=== PATIENT | female | born 1960 | race American Indian/Alaskan Native ===

== ENCOUNTER 2018-12-31 11:57 | Emergency (ER) | payer OTHER ==
[2018-12-31 12:06] VITALS: BP 134/89
--- NOTE | 2018-12-31 12:08 | Emergency Department Report ---
ED ENT HPI - General Chief complaint: Earache Stated complaint: EAR CLOGGED Time Seen by Provider: 12/31/18 12:02 Source: patient Mode of arrival: Ambulatory Limitations: No Limitations - History of Present Illness Initial comments: 58 y/o female comes in for 3 day history of right hear decrease hearing and pain 09/11. She has history of vertigo. PMH DM, HTN . MD complaint: ear pain Onset/Timin -: days(s) Location: R ear Severity: mild Severity scale (0 -10): 2 Quality: aching Consistency: intermittent Improves with: none Worsens with: none Associated Symptoms: hearing loss - Related Data Previous Rx's Medication Instructions Recorded Last Taken Type Ibuprofen [Motrin 600 MG tab] 600 mg PO Q8H PRN #15 tablet 12/31/18 Unknown Rx Allergies Allergy/AdvReac Type Severity Reaction Status Date / Time tomato Allergy Itching Verified 12/31/18 11:58 ED Dental HPI - General Chief complaint: Earache Stated complaint: EAR CLOGGED Time Seen by Provider: 12/31/18 12:02 Source: patient Mode of arrival: Ambulatory Limitations: No Limitations - Related Data Previous Rx's Medication Instructions Recorded Last Taken Type Ibuprofen [Motrin 600 MG tab] 600 mg PO Q8H PRN #15 tablet 12/31/18 Unknown Rx Allergies Allergy/AdvReac Type Severity Reaction Status Date / Time tomato Allergy Itching Verified 12/31/18 11:58 ED Review of Systems ROS: Stated complaint: EAR CLOGGED Other details as noted in HPI Comment: All other systems reviewed and negative ED Past Medical Hx - Past Medical History Hx Hypertension: Yes Hx Diabetes: Yes Additional medical history: vertigo - Surgical History Additional Surgical History: tubal ligation - Medications Home Medications: Home Medications Medication Instructions Recorded Confirmed Last Taken Type Ibuprofen [Motrin 600 MG tab] 600 mg PO Q8H PRN #15 tablet 12/31/18 Unknown Rx ED Physical Exam - General Limitations: No Limitations General appearance: alert, in no apparent distress - Head Head exam: Present: atraumatic, normocephalic - Eye Eye exam: Present: normal appearance - ENT ENT exam: Present: mucous membranes moist, TM's normal bilaterally - Neck Neck exam: Present: normal inspection, full ROM - Neurological Exam Neurological exam: Present: alert, oriented X3, normal gait - Psychiatric Psychiatric exam: Present: normal affect, normal mood - Skin Skin exam: Present: warm, dry, intact, normal color. Absent: rash ED Medical Decision Making - Medical Decision Making 58 y/o female comes in for right ear discomfort and decreased hearing. Normal ear exam. Recommend tylenol and referral to ENT. Critical care attestation.: If time is entered above; I have spent that time in minutes in the direct care of this critically ill patient, excluding procedure time. ED Disposition Clinical Impression: Decreased hearing of right ear Acute ear pain Qualifiers: Laterality: right Qualified Code(s): H92.01 - Otalgia, right ear Disposition: DC- TO HOME OR SELFCARE Is pt being admited?: No Does the pt Need Aspirin: No Condition: Stable Instructions: Earache (ED) Additional Instructions: Take pain meds as needed. Follow up with a Ear Nose and Throat. Prescriptions: Ibuprofen [Motrin 600 MG tab] 600 mg PO Q8H PRN #15 tablet PRN Reason: Pain Referrals: JACQUELINE BENAVIDEZ MD [Staff Physician] - 3-5 Days Forms: Work/School Release Form(ED)
== END 2018-12-31 12:10 | disposition home or self-care (01) ==
LOC: ED 11:57
DX: H92.01 Otalgia, right ear (principal); I10 Essential (primary) hypertension; E11.9 Type 2 diabetes mellitus without complications; Z98.51 Tubal ligation status; Z91.018 Allergy to other foods
CPT/HCPCS: 99282

== ENCOUNTER 2019-01-05 12:50 | Emergency (ER) | payer OTHER ==
[2019-01-05] MEDS ORDERED: BENADRYL PO ONE (12:55)
[2019-01-05] MEDS ORDERED: PEPCID PO ONE (12:55)
[2019-01-05] MEDS ORDERED: DEPO-Medrol IM ONE (12:55)
--- NOTE | 2019-01-05 12:55 | Emergency Department Report ---
ED Allergic Reaction HPI - General Chief complaint: Allergic Reaction Stated complaint: FACE SWELLING FROM HAIR DYE Time Seen by Provider: 01/05/19 12:53 Source: patient Mode of arrival: Ambulatory Limitations: No Limitations - History of Present Illness Initial Comments: 3 DAYS AGO COLORED HER HAIR. SHE STARTED TO ITCH AND TODAY EYES SWELLED. SHE HAS HAD SIMILAR REACTION IN PAST BENADRYL AT HOME NOT HELPING NO SOB NO CP VSS NAD ABC INTACT NO WHEEZING MD Complaint: allergic reaction -: Gradual, days(s) Exposure: other Symptoms: facial swelling Severity: mild Treatment Prior to Arrival: benadryl Previous Allergy History: none - Related Data Previous Rx's Medication Instructions Recorded Last Taken Type Cetirizine HCl [ZyrTEC] 10 mg PO DAILY #30 capsule 01/05/19 Unknown Rx diphenhydrAMINE [Benadryl CAP] 25 mg PO Q8HR PRN #20 capsule 01/05/19 Unknown Rx predniSONE [Deltasone] 20 mg PO DAILY #5 tablet 01/05/19 Unknown Rx Allergies Allergy/AdvReac Type Severity Reaction Status Date / Time tomato Allergy Itching Verified 01/05/19 12:50 ED Review of Systems ROS: Stated complaint: FACE SWELLING FROM HAIR DYE Other details as noted in HPI Comment: All other systems reviewed and negative ED Past Medical Hx - Past Medical History Hx Hypertension: Yes Hx Diabetes: Yes Additional medical history: vertigo - Surgical History Past Surgical History?: Yes Additional Surgical History: tubal ligation - Family History Family history: no significant - Social History Smoking Status: Current Every Day Smoker Substance Use Type: Alcohol - Medications Home Medications: Home Medications Medication Instructions Recorded Confirmed Last Taken Type Cetirizine HCl [ZyrTEC] 10 mg PO DAILY #30 capsule 01/05/19 Unknown Rx diphenhydrAMINE [Benadryl CAP] 25 mg PO Q8HR PRN #20 capsule 01/05/19 Unknown Rx predniSONE [Deltasone] 20 mg PO DAILY #5 tablet 01/05/19 Unknown Rx ED Physical Exam - General Limitations: No Limitations General appearance: alert - Head Head exam: Present: atraumatic, normocephalic - Eye Eye exam: Present: normal appearance, PERRL - ENT ENT exam: Present: mucous membranes moist - Neck Neck exam: Present: normal inspection - Respiratory Respiratory exam: Present: normal lung sounds bilaterally - Cardiovascular Cardiovascular Exam: Present: regular rate - GI/Abdominal GI/Abdominal exam: Present: soft - Rectal Rectal exam: Present: deferred - Extremities Exam Extremities exam: Present: normal inspection, full ROM - Back Exam Back exam: Present: normal inspection, full ROM - Neurological Exam Neurological exam: Present: alert, oriented X3, normal gait - Psychiatric Psychiatric exam: Present: normal affect, normal mood - Skin Skin exam: Present: warm, dry, intact ED Course Vital Signs 01/05/19 12:54 Temperature 98.1 F Pulse Rate 100 H Respiratory 16 Rate Blood Pressure 160/88 [Left] O2 Sat by Pulse 98 Oximetry ED Medical Decision Making - Medical Decision Making MEDICATED WITH DEPOMEDROL, BENADRYL AND PEPCID DC HOME WITH RX AND PCP FOLLOW UP AT [facility] ABC INTACT NO SOB NO WHEEZING NO RASH HAS HAD BEFORE - DUE TO HAIR DYE Vital Signs 01/05/19 12:54 Temperature 98.1 F Pulse Rate 100 H Respiratory 16 Rate Blood Pressure 160/88 [Left] O2 Sat by Pulse 98 Oximetry Critical care attestation.: If time is entered above; I have spent that time in minutes in the direct care of this critically ill patient, excluding procedure time. ED Disposition Clinical Impression: Allergic reaction Disposition: DC-01 TO HOME OR SELFCARE Is pt being admited?: No Does the pt Need Aspirin: No Condition: Stable Instructions: Allergies (ED) Prescriptions: diphenhydrAMINE [Benadryl CAP] 25 mg PO Q8HR PRN #20 capsule PRN Reason: Itching predniSONE [Deltasone] 20 mg PO DAILY #5 tablet Cetirizine HCl [ZyrTEC] 10 mg PO DAILY #30 capsule Referrals: [facility] [Outside] - 3-5 Days Time of Disposition: 12:54
[2019-01-05 13:09] VITALS: BP 160/88
== END 2019-01-05 13:47 | disposition home or self-care (01) ==
LOC: ED 12:50
DX: T78.40XA Allergy, unspecified, initial encounter (principal); I10 Essential (primary) hypertension; E11.9 Type 2 diabetes mellitus without complications; F17.200 Nicotine dependence, unspecified, uncomplicated; Z98.51 Tubal ligation status; Z91.018 Allergy to other foods; X58.XXXA Exposure to other specified factors, initial encounter
CPT/HCPCS: 96372; 99282; J1040

== ENCOUNTER 2021-06-26 09:41 | Emergency (ER) | payer SELFPAY ==
--- NOTE | 2021-06-26 10:32 | Event Note ---
ED Screening Note Date of service: 06/26/21 Time: 10:31 ED Screening Note: 61-year-old female with a past medical history of hypertension, diabetes and hyperlipidemia tobacco use presents to the ER today complaint of feeling dizzy. Patient states that she has been having these symptoms intermittently since last week Wednesday. She describes it as herself spinning, but also feeling drunk. She states that her symptoms got worse today. She states that yesterday she felt like she was about to pass out, but not today. She states that this morning she also had "a slight pain in her left arm" but no chest pain or shortness of breath. She denies any nausea or vomiting. She denies any lower extremity swelling or calf pain. This initial assessment/diagnostic orders/clinical plan/treatment(s) is/are subject to change based on patients health status, clinical progression and re-assessment by fellow clinical providers in the ED. Further treatment and workup at subsequent clinical providers discretion. Patient/guardian urged not to elope from the ED as their condition may be serious if not clinically assessed and managed. Initial orders include: Labs including EKG, chest x-ray and head CT
--- NOTE | 2021-06-26 11:03 | Cat Scan Report ---
CT head/brain wo con INDICATION: Pt has a history of vertigo. dizzy. TECHNIQUE: All CT scans at this location are performed using CT dose reduction for ALARA by means of automated e xposure control. COMPARISON: None available. FINDINGS: There is no evidence of hemorrhage, hydrocephalus, brain edema, or mass effect/mass lesion. There is overall normal brain formation and brain volume for the patient's age. Ventricular and cisternal/sulc al size is normal for age. The included paranasal sinuses and mastoid air cells are clear. The orbits appear unremarkable. IMPRESSION: 1. No acute intracranial abnormality. Signer Name: Cory Lofton MD Signed: 06/26/2021 10:58 AM Workstation Name: [id number]
[2021-06-26] MEDS ORDERED: MECLIZINE 25 MG TAB PO ONE (11:23)
[2021-06-26 11:30] LABS: Basophils # (Auto) 0.1 K/mm3 (0.0-0.1); Basophils % (Auto) 1.4 % (0.0-1.8); Eosinophils # (Auto) 0.1 K/mm3 (0.0-0.4); Eosinophils % (Auto) 2.6 % (0.0-4.3); Hematocrit 37.6 % (30.3-42.9); Hemoglobin 11.7 gm/dl (10.1-14.3); Lymphocytes # (Auto) 2.1 K/mm3 (1.2-5.4); Lymphocytes % (Auto) 38.1 % (13.4-35.0); Mean Corpuscular HGB Conc 31 % (30-34); Mean Corpuscular Volume 70 fl (79-97); Monocytes # (Auto) 0.4 K/mm3 (0.0-0.8); Monocytes % (Auto) 7.6 % (0.0-7.3); Platelet Count 288 K/mm3 (140-440); Red Blood Count 5.36 M/mm3 (3.65-5.03)
--- NOTE | 2021-06-26 11:40 | Emergency Department Report ---
HPI - General Chief Complaint: Dizziness Time Seen by Provider: 06/26/21 11:22 - HPI HPI: MSE 5 The patient is a 61-year-old female present with a chief complaint of dizziness. Patient states her symptoms began approximately 1 week ago after standing up she noticed dizziness feelings of the room spinning. Patient states she has been diagnosed with vertigo in the past approximately 10 years ago. Patient states she has dizziness with any change in position. The patient states she has been anemic in the past and thought maybe she needed to take iron tablets so she began taking iron supplementation but her symptoms have not improved. Patient denies nausea/vomiting, shortness of breath, chest pain, fever or cough. Patient states she has been vaccinated against Covid ED Past Medical Hx - Past Medical History Hx Hypertension: Yes Hx Diabetes: Yes Additional medical history: vertigo - Surgical History Additional Surgical History: tubal ligation - Family History Family history: no significant - Social History Smoking Status: Current Every Day Smoker (1/2 pack/day) Substance Use Type: None (Denies illicit drug) - Medications Home Medications: Home Medications Medication Instructions Recorded Confirmed Last Taken Type Cetirizine HCl [ZyrTEC] 10 mg PO DAILY #30 capsule 01/05/19 Unknown Rx diphenhydrAMINE [Benadryl CAP] 25 mg PO Q8HR PRN #20 capsule 01/05/19 Unknown Rx predniSONE [Deltasone] 20 mg PO DAILY #5 tablet 01/05/19 Unknown Rx Meclizine [Antivert] 25 mg PO TID PRN #20 tablet 06/26/21 Unknown Rx ED Review of Systems ROS: Stated complaint: I KEEP FEELING OUT LIKE I'M GOING TO PAST OUT Other details as noted in HPI Constitutional: denies: fever Eyes: denies: eye pain ENT: denies: throat pain Respiratory: denies: shortness of breath Cardiovascular: denies: chest pain Endocrine: no symptoms reported Gastrointestinal: denies: nausea, vomiting Genitourinary: denies: dysuria Musculoskeletal: denies: back pain Neurological: vertigo. denies: headache Physical Exam - Physical Exam Vital Signs: Vital Signs 06/26/21 09:45 Temperature 98.5 F Pulse Rate 88 Respiratory 18 Rate Blood Pressure 113/66 [Right] O2 Sat by Pulse 100 Oximetry Vital Signs 12/23/21 12/23/21 12/23/21 09:45 13:23 16:45 Temperature 98.5 F Pulse Rate 88 Pulse Rate [ 82 82 Lying] Pulse Rate [ 83 81 Sitting] Pulse Rate [ 97 H 91 H Standing] Respiratory 18 Rate Blood Pressure 87/51 100/51 [Lying] Blood Pressure 113/66 [Right] Blood Pressure 97/59 114/56 [Sitting] Blood Pressure 98/63 105/56 [Standing] O2 Sat by Pulse 100 Oximetry Physical Exam: GENERAL: The patient is well-developed well-nourished female lying on stretcher not appearing to be in acute. [] HEENT: Normocephalic. Atraumatic. Extraocular motions are intact. Patient has moist mucous membranes. No nystagmus noted NECK: Supple. No meningitic signs are noted. Trachea midline CHEST/LUNGS: Clear to auscultation. There is no respiratory distress noted. HEART/CARDIOVASCULAR: Regular. There is no tachycardia. There is no gallop rub or murmur. ABDOMEN: Abdomen is soft, nontender. Patient has normal bowel sounds. There is no abdominal distention. SKIN: There is no rash. There is no edema. There is no diaphoresis. NEURO: The patient is awake, alert, and oriented. The patient is cooperative. The patient has no focal neurologic deficits. The patient has normal speech and gait. Cranial nerves II through XII grossly intact. No dysmetria noted with finger-nose bilaterally. GCS 15. NIHSS= 0 MUSCULOSKELETAL: There is no evidence of acute injury. ED Course Vital Signs 06/26/21 09:45 Temperature 98.5 F Pulse Rate 88 Respiratory 18 Rate Blood Pressure 113/66 [Right] O2 Sat by Pulse 100 Oximetry ED Medical Decision Making - Lab Data Result diagrams: 06/26/21 11:10 06/26/21 11:10 Laboratory Tests 06/26/21 06/26/21 06/26/21 11:10 11:10 Unknown WBC 5.5 RBC 5.36 H Hgb 11.7 Hct 37.6 MCV 70 L MCH 22 L MCHC 31 RDW 15.0 Plt Count 288 Lymph % (Auto) 38.1 H [place] % (Auto) 7.6 H Eos % (Auto) 2.6 Baso % (Auto) 1.4 Lymph # (Auto) 2.1 [place] # (Auto) 0.4 Eos # (Auto) 0.1 Baso # (Auto) 0.1 Seg Neutrophils % 50.3 Seg Neutrophils # 2.8 Sodium 137 Potassium 4.1 Chloride 100.6 Carbon Dioxide 23 Anion Gap 18 BUN 21 H Creatinine 0.8 Estimated GFR > 60 BUN/Creatinine Ratio 26 Glucose 179 H Calcium 9.3 Magnesium 2.10 Total Bilirubin 0.20 AST 13 ALT 15 Alkaline Phosphatase 79 Troponin T < 0.010 Total Protein 7.1 Albumin 4.4 Albumin/Globulin Ratio 1.6 Urine Bilirubin Neg U Epithel Cells (Auto) 11.0 - EKG Data -: EKG Interpreted by [facility] EKG shows normal: sinus rhythm Rate: normal - EKG Data When compared to previous EKG there are: previous EKG unavailable Interpretation: other (Normal sinus rhythm at 84 bpm. QTc 433. QRS 97. Flattened T waves in leads aVL) - Radiology Data Radiology results: report reviewed (CT head), image reviewed (CT head) [facility] [address] [place] [address] Cat Scan Report Signed Patient: KEITH LANTIGUA MR#: [id number] : 1960 Acct:[id number] Age/Sex: 61 / F ADM Date: 06/26/21 Loc: ED Attending Dr: Ordering Physician: EDMOND ANDERSON Date of Service: 06/26/21 Procedure(s): CT head/brain wo con Accession Number(s): [id number] cc: EDMOND ANDERSON CT head/b rain wo con INDICATION: Pt has a history of vertigo. dizzy. TECHNIQUE: All CT scans at this location are performed using CT dose reduction for ALARA by means of automated exposure control. COMPARISON: None available. FINDINGS: There is no evidence of hemorrhage, hydrocephalus, brain edema, or mass effect/mass lesion. There is overall normal brain formation and brain volume for the patient's age. Ventricular and cisternal/sulcal size is normal for age. The included paranasal sinuses and mastoid air cells are clear. The orbits appear unremarkable. IMPRESSION: 1. No acute intracranial abnormality. Signer Name: Cory Lofton MD Signed: 06/26/2021 10:58 AM Workstation Name: [id number] Transcribed By: SON Dictated By: Cory Lofton MD Electronically Authenticated By: Cory Lofton MD Signed Date/Time: 06/26/211057 DD/ 56 TD/TT: Print Cancel - Differential Diagnosis Vertigo, ICH, intracranial mass, symptomatic anemia, dehydration Critical care attestation.: If time is entered above; I have spent that time in minutes in the direct care of this critically ill patient, excluding procedure time. ED Disposition Clinical Impression: Vertigo, Dehydration Disposition: HOME / SELF CARE / HOMELESS Is pt being admited?: No Does the pt Need Aspirin: No Condition: Stable Instructions: Dehydration, Adult, [id number], Dizziness, [id number] Additional Instructions: Return to the emergency department should you develop worsening symptoms, inability to tolerate food or liquids, high fever or any other concerns Prescriptions: Meclizine [Antivert] 25 mg PO TID PRN #20 tablet PRN Reason: Vertigo Referrals: PRIMARY CAREMD [Primary Care Provider] - 3-5 Days CHELSIE SMALLS MD [Staff Physician] - 3-5 Days (Dr. Smalls is a neurologist. Please follow-up with him for further evaluation) Time of Disposition: 17:01
[2021-06-26 11:50] LABS: Alanine Aminotransferase 15 units/L (7-56); Albumin 4.4 g/dL (3.9-5); BUN/Creatinine Ratio 26; Blood Urea Nitrogen 21 mg/dL (7-17); Calcium 9.3 mg/dL (8.4-10.2); Hemolysis Index 6
[2021-06-26] MEDS ORDERED: SODIUM CHLORIDE 0.9% 1000 ML 1,000 ML IV ONE (13:31)
--- NOTE | 2021-06-26 13:33 | Electrocardiograph Report ---
[facility] Test Date: 2021-06-26 Test Time: 10:18:42 Pat Name: KEITH LANTIGUA Department: Room: Gender: [employer] Representative: 01 : 1960 Requested By: EDMOND ANDERSON Order Number: [id number] Reading MD: Jessica Rodriguez Measurements Intervals Oden Rate: 84 P: 77 WI: 204 QRS: 39 QRSD: 97 T: 61 QT: 365 QTc: 433 Interpretive Statements Sinus rhythm Anterior infarct, old No previous ECG available for comparison Electronically Signed On 06-26-2021 13:33:29 EST by Jessica Rodriguez
[2021-06-26] MEDS: SODIUM CHLORIDE 0.9% 1000 ML 1,000 ML IV ONE (14:06)
[2021-06-26 16:41] LABS: Bacteria,Urine 1+ /HPF (Negative); Bilirubin,Urine NEG (Negative); Blood,Urine NEG (Negative); Color,Urine Straw (Yellow); Mucus,Urine FEW /HPF; Protein,Urine <15 mg/dL mg/dL (Negative); Urobilinogen,Urine < 2.0 mg/dL (<2.0)
[2021-06-26 17:08] VITALS: BP 130/73
== END 2021-06-26 17:15 | disposition home or self-care (01) ==
LOC: ED 09:41
DX: R42 Dizziness and giddiness (principal); E86.0 Dehydration; I10 Essential (primary) hypertension; E11.9 Type 2 diabetes mellitus without complications; F17.200 Nicotine dependence, unspecified, uncomplicated
CPT/HCPCS: 36415; 70450; 80053; 81001; 83735; 84484; 85025; 87086; 93005; 96360; 96361; 99284; J7030; Q0162